=== PATIENT | female | born 1960 | race Caucasian/White ===

== ENCOUNTER 2020-11-21 12:51 | Inpatient (IN) | payer OTHER ==
[~2020-11-21] VITALS: Ht 157.5 cm; Wt 54.4 kg
[2020-11-21] MEDS ORDERED: IV NORMAL SALINE 1000 ML BAG IV ONE (13:45)
--- NOTE | 2020-11-21 13:50 | NUR ---
Patient arrived on unit yelling and demanding she be seen be for others, MD at bedside for assessment at this time, patient appears anscious
--- NOTE | 2020-11-21 14:00 | NUR ---
Tristan states she almost passed out at [employer] and feels like she has chest pain
[2020-11-21 14:47] LABS: HEMATOCRIT 39.5 % (31.2-41.9); MEAN CORPUSCULAR HEMOGLOBIN 31.2 uug (24.7-32.8); MEAN CORPUSCULAR VOLUME 92.3 fL (75.5-95.3); PLATELET COUNT (AUTO) 265 K/uL (179-408)
[2020-11-21 14:53] LABS: CREATININE 0.7 mg/dL (0.6-1.3); POTASSIUM 3.6 mmol/L (3.5-5.1)
[2020-11-21 14:59] LABS: BILIRUBIN,DIRECT 0.1 mg/dL (0.0-0.2); BILIRUBIN,TOTAL 0.2 mg/dL (0.2-1.0); TOTAL PROTEIN, SERUM 7.8 g/dL (6.4-8.2)
[2020-11-21] MEDS ORDERED: ASPIRIN 325 MG TABLET PO ONE (16:00)
[2020-11-21] MEDS ORDERED: ASPIRIN 325 MG TABLET ONE (16:50)
--- NOTE | 2020-11-21 17:30 | NUR ---
Patient noted resting on bed and eating dinner, no signs of distress
--- NOTE | 2020-11-21 18:00 | NUR ---
Md melendez states she will accept patient
--- NOTE | 2020-11-21 18:50 | NUR ---
Patient will go to tele room 304 and nurse will be dior
[2020-11-21] MEDS ORDERED: ACETAMINOPHEN 325 MG TABLET PO PRN (21:00)
[2020-11-21] MEDS ORDERED: ONDANSETRON 4 MG/2 ML VIAL IV PRN (21:00)
[2020-11-21] MEDS ORDERED: MAGNESIUM HYDROXIDE 30 ML LIQUID UDC PO PRN (21:00)
[2020-11-21] MEDS ORDERED: Z GUARD REMEDY PASTE 57 GM TUBE TOP PRN (21:00)
--- NOTE | 2020-11-21 21:04 | NUR ---
GAVE REPORT TO MELISSA.
--- NOTE | 2020-11-21 21:58 | NUR ---
Pt. admitted to TELE 304 , under care of DX: CHEST PAIN Belongs List completed
--- NOTE | 2020-11-21 22:01 | NUR ---
Admitted patient in Tele unit from Er via wheelchair accompanied by staff nurse. Dx of Syncope and CP.Patient awake alert x4 .Denies chest pain or discomfort at this time. On Ra.No s/s of distress noted. Iv on right FA 20g patent and intact.Ambulates to bathroom .Voided well.SKin intact.Patient requesting for sleeping pill. made aware with new order received noted and carried out. Call light with in reach.will continue to monitor.
[2020-11-21 22:20] VITALS: BP 130/64
[2020-11-21] MEDS ORDERED: MELATONIN 3 MG TABLET PO PRN (22:45)
[2020-11-22 00:25] VITALS: BP 119/63
[2020-11-22 04:31] VITALS: BP 102/53
[2020-11-22] MEDS ORDERED: PANTOPRAZOLE SODIUM 40 MG TABLET.DR PO SCH (07:00)
[2020-11-22 07:17] LABS: HEMATOCRIT 37.8 % (31.2-41.9); MEAN CORPUSCULAR HEMOGLOBIN 31.6 uug (24.7-32.8); MEAN CORPUSCULAR VOLUME 93.6 fL (75.5-95.3); PLATELET COUNT (AUTO) 243 K/uL (179-408)
[2020-11-22 07:38] LABS: CREATININE 0.7 mg/dL (0.6-1.3); MAGNESIUM 2.2 mg/dL (1.8-2.4); PHOSPHOROUS 3.6 mg/dL (2.5-4.9); POTASSIUM 4.1 mmol/L (3.5-5.1)
[2020-11-22 07:47] LABS: THYROID STIMULATING HORMONE 3.777 mIU/mL (0.358-3.740)
[2020-11-22] MEDS ORDERED: ASPIRIN EC 81 MG TABLET.DR PO SCH (09:00)
[2020-11-22] MEDS ORDERED: ENOXAPARIN SODIUM 40 MG/0.4 ML DISP.SYRIN SQ SCH (09:00)
--- NOTE | 2020-11-22 11:15 | NUR ---
Patient left hospital AMA. Patient AOx4. On room air. Patient denies pain/ discomfort. Patient denies SOB/ . Informed patient risks and consequences of leaving against medical advice, patient verbalized understanding. Patient signed AMA form and placed in chart. IV access removed. ID armband removed. monitor worker removed. Dr. Varghese informed. Patient left unit ambulatory and assisted to hospital parking lot.
== END 2020-11-22 11:05 | disposition left against medical advice (07) | DRG 204 ==
LOC: ER 12:51 → TELE3 21:21
PROVIDERS: ADMIT Student in an Organized Health Care Education/Training Program; ATTEND Student in an Organized Health Care Education/Training Program
DX: R55 Syncope and collapse (principal); E78.5 Hyperlipidemia, unspecified; R07.89 Other chest pain; Z20.822 Contact with and (suspected) exposure to COVID-19
CPT/HCPCS: 36415; 70030-TC; 70450; 71045; 83735; 84100; 84443; 85025; 93005; 93307; A4663; G0378; J1650; J7030